=== PATIENT | male | born 1990 | race American Indian/Alaskan Native ===

== ENCOUNTER 2020-09-24 21:08 | Inpatient (IN) | payer MEDICAID, OTHER ==
[2020-09-24] MEDS ORDERED: Sodium Chloride 0.9% 10 ML Syringe FLUSH PRN (21:09)
[2020-09-24] MEDS ORDERED: Sodium Chloride 0.9% 2.5 ML Syringe FLUSH PRN (21:09)
[2020-09-24] MEDS ORDERED: Folic Acid 50 MG/10 ML MDV IV STA (21:10)
[2020-09-24] MEDS ORDERED: Thiamine 200 MG/2 ML MDV IVPUSH ONE (21:11)
[2020-09-24] MEDS ORDERED: Morphine 4 MG/ML Syringe IVPUSH ONE ×2 (21:24→22:51)
[2020-09-24] MEDS ORDERED: Ondansetron 4 MG/2 ML SDV IVPUSH ONE (21:24)
--- NOTE | 2020-09-24 21:29 | EDM.PDOC ---
ED HPI GENERAL MEDICAL PROBLEM - General Chief Complaint: Abdominal Pain Stated Complaint: ALCOHOLISM ISSUES Time Seen by Provider: 09/24/20 21:09 - History of Present Illness INITIAL COMMENTS - FREE TEXT/NARRATIVE: 29-year-old male with a history of heavy alcohol abuse but denies history of alcohol withdrawal history of pancreatitis that he says has been bothering him for the last 2 months who is presenting with alcohol intoxication and abdominal pain. The patient states that he has been admitted for his pancreas twice most recently a few days ago in [place]. He states that he was admitted for 5 days. He was initially given Dilaudid and then oxycodones but he did not like how they made him feel. He did do better with morphine. He states that they told him that they were going to discharge him and his brother was there so he went home with his brother. He is currently homeless and living in his brother's garage. He has been drinking with his brother every day since discharge. Today he developed worsening abdominal pain similar to prior episodes of pancreatitis. He called 911 and after that his brother kicked him out of his house because he did not want anyone to show up at his house. EMS found him on the side of the road. He was initially hypothermic. He denies other medical problems. Abdominal pain is associated with nausea and is moderate to severe. abdomen Pain Score (Numeric/FACES): 10 - Related Data Allergies Allergy/AdvReac Type Severity Reaction Status Date / Time No Known Allergies Allergy Verified 09/24/20 21:32 Home Meds: Home Meds . [No Known Home Meds] 09/24/20 [History] ED ROS GENERAL - Review of Systems Review Of Systems: See Below Free Text/Narrative/Comment: General: No fever. Skin: No rash. Neck: No neck stiffness. Respiratory: No shortness of breath. Cardiac: No chest pain. Gastrointestinal: No nausea, vomiting or abdominal pain. Urinary: No dysuria. Musculoskeletal: No myalgias/arthralgias. Neurologic: No headache. Per HPI ED EXAM, GENERAL - Physical Exam Exam: See Below Free Text/Narrative:: General Appearance: No acute distress, appears comfortable Skin: No rash HEENT: Normocephalic/atraumatic, sclera anicteric, mucous membranes dry Neck: Normal range of motion Chest and Lungs: Bilateral breath sounds, clear to auscultation Cardiovascular: Regular rate and rhythm, no murmur Abdomen: Diffuse tenderness without guarding or rebound dry Musculoskeletal: No edema or tenderness Neurologic: Awake, alert, no obvious deficits, moving all extremities, no slurred speech clinically sober Psychiatric: Appropriate, cooperative Course - Vital Signs Last Recorded V/S: Last Vital Signs Temp 95.6 F L 09/24/20 21:17 Pulse 67 09/24/20 21:17 Resp 20 09/24/20 21:17 BP 127/78 09/24/20 21:17 Pulse Ox 100 09/24/20 21:17 - Orders/Labs/Meds Orders: Active Orders 24 hr Category Date Time Status Accu Check [Blood Glucose Check, Bedside] [RC] ONETIME Care 09/24/20 21:12 Active COVID-19/FLU A+B [MOLEC] Stat Lab 09/24/20 22:54 Ordered Lactated Ringers [Ringers, Lactated] 1,000 ml Med 09/24/20 22:30 Active IV ASDIRECTED Sodium Chloride 0.9% [Saline Flush] Med 09/24/20 21:09 Active 10 ml FLUSH ASDIRECTED PRN Sodium Chloride 0.9% [Saline Flush] Med 09/24/20 21:09 Active 2.5 ml FLUSH ASDIRECTED PRN Saline Lock Insert [OM.PC] Stat Oth 09/24/20 21:10 Ordered Medication Orders Lactated Ringer's (Ringers, Lactated) 1,000 mls @ 125 mls/hr IV ASDIRECTED LISA Sodium Chloride (Sodium Chloride 0.9% 10 Ml Syringe) 10 ml FLUSH ASDIRECTED PRN PRN Reason: Keep Vein Open Last Admin: 09/24/20 21:29 Dose: 10 ml Documented by: SID Sodium Chloride (Sodium Chloride 0.9% 2.5 Ml Syringe) 2.5 ml FLUSH ASDIRECTED PRN PRN Reason: Keep Vein Open Last Admin: 09/24/20 21:29 Dose: 2.5 ml Documented by: SID Labs: Laboratory Tests 09/24/20 09/24/20 09/24/20 Range/Units 21:35 21:35 21:35 WBC 7.72 (4.0-11.0) K/uL RBC 3.96 L (4.50-5.90) M/uL Hgb 14.0 (13.0-17.0) g/dL Hct 42.3 (38.0-50.0) % MCV 106.8 H (80.0-98.0) fL MCH 35.4 H (27.0-32.0) pg MCHC 33.1 (31.0-37.0) g/dL RDW Std Deviation 58.1 (28.0-62.0) fl RDW Coeff of Hawa 15 (11.0-15.0) % Plt Count 298 (150-400) K/uL MPV 10.00 (7.40-12.00) fL Neut % (Auto) 48.6 (48.0-80.0) % Lymph % (Auto) 32.4 (16.0-40.0) % [place] % (Auto) 9.7 (0.0-15.0) % Eos % (Auto) 6.3 (0.0-7.0) % Baso % (Auto) 3.0 H (0.0-1.5) % Neut # (Auto) 3.8 (1.4-5.7) K/uL Lymph # (Auto) 2.5 H (0.6-2.4) K/uL [place] # (Auto) 0.8 (0.0-0.8) K/uL Eos # (Auto) 0.5 (0.0-0.7) K/uL Baso # (Auto) 0.2 H (0.0-0.1) K/uL Nucleated RBC % 0.0 /100WBC Nucleated RBCs # 0 K/uL Sodium 146 (136-148) mmol/L Potassium 3.8 (3.5-5.1) mmol/L Chloride 107 (98-107) mmol/L Carbon Dioxide 27.8 (21.0-32.0) mmol/L BUN 7 (7.0-18.0) mg/dL Creatinine 0.8 (0.8-1.3) mg/dL Est Cr Clr Drug Dosing 135.49 mL/min Estimated GFR (MDRD) > 60.0 ml/min Glucose 103 (74-106) mg/dL POC Glucose 92 (70-99) mg/dL Calcium 8.7 (8.5-10.1) mg/dL Magnesium 2.1 (1.8-2.4) mg/dL Total Bilirubin 0.8 (0.2-1.0) mg/dL AST 94 H (15-37) IU/L ALT 258 H (14-63) IU/L Alkaline Phosphatase 201 H (46-116) U/L Total Protein 8.2 (6.4-8.2) g/dL Albumin 3.6 (3.4-5.0) g/dL Globulin 4.6 H (2.6-4.0) g/dL Albumin/Globulin Ratio 0.8 L (0.9-1.6) Lipase 1781 H (73-393) U/L Ethyl Alcohol 265 mg/dL Meds: Medications Generic Name Dose Route Start Last Admin Trade Name Taniya PRN Reason Stop Dose Admin Lactated Ringer's 1,000 mls @ 125 mls/hr 09/24/20 22:30 Ringers, Lactated IV ASDIRECTED LISA Sodium Chloride 10 ml 09/24/20 21:09 09/24/20 21:29 Sodium Chloride 0.9% 10 Ml Syringe FLUSH 10 ml ASDIRECTED PRN Administration Keep Vein Open Sodium Chloride 2.5 ml 09/24/20 21:09 09/24/20 21:29 Sodium Chloride 0.9% 2.5 Ml Syringe FLUSH 2.5 ml ASDIRECTED PRN Administration Keep Vein Open Discontinued Medications Generic Name Dose Route Start Last Admin Trade Name Taniya PRN Reason Stop Dose Admin Folic Acid 1 mg 09/24/20 21:10 09/24/20 21:28 Folic Acid 50 Mg/10 Ml Mdv IV 09/24/20 21:11 1 mg NOW STA Administration Morphine Sulfate 4 mg 09/24/20 21:24 09/24/20 21:28 Morphine 4 Mg/Ml Syringe IVPUSH 09/24/20 21:25 4 mg ONETIME ONE Administration Morphine Sulfate 4 mg 09/24/20 22:51 Morphine 4 Mg/Ml Syringe IVPUSH 09/24/20 22:52 ONETIME ONE Ondansetron HCl 4 mg 09/24/20 21:24 09/24/20 21:29 Ondansetron 4 Mg/2 Ml Sdv IVPUSH 09/24/20 21:25 4 mg ONETIME ONE Administration Thiamine HCl 100 mg 09/24/20 21:11 09/24/20 21:28 Thiamine 200 Mg/2 Ml Mdv IVPUSH 09/24/20 21:12 100 mg ONETIME ONE Administration Departure - Departure Time of Disposition: 22:58 Disposition: Admitted As Inpatient 66 Condition: Good Clinical Impression: Acute pancreatitis - Discharge Information *PRESCRIPTION DRUG MONITORING PROGRAM REVIEWED*: Not Applicable *COPY OF PRESCRIPTION DRUG MONITORING REPORT IN PATIENT KYLEE: Not Applicable Forms: ED Department Discharge Sepsis Event Note (ED) - Focused Exam Vital Signs: Vital Signs Temp Pulse Resp BP Pulse Ox 09/24/20 21:17 95.6 F L 67 20 127/78 100 - My Orders Last 24 Hours: My Active Orders 09/24/20 21:09 Sodium Chloride 0.9% [Saline Flush] 10 ml FLUSH ASDIRECTED PRN Sodium Chloride 0.9% [Saline Flush] 2.5 ml FLUSH ASDIRECTED PRN 09/24/20 21:10 Saline Lock Insert [OM.PC] Stat 09/24/20 21:12 Accu Check [Blood Glucose Check, Bedside] [RC] ONETIME 09/24/20 22:30 Lactated Ringers [Ringers, Lactated] 1,000 ml IV ASDIRECTED 09/24/20 22:54 COVID-19/FLU A+B [MOLEC] Stat - Assessment/Plan Last 24 Hours: My Active Orders 09/24/20 21:09 Sodium Chloride 0.9% [Saline Flush] 10 ml FLUSH ASDIRECTED PRN Sodium Chloride 0.9% [Saline Flush] 2.5 ml FLUSH ASDIRECTED PRN 09/24/20 21:10 Saline Lock Insert [OM.PC] Stat 09/24/20 21:12 Accu Check [Blood Glucose Check, Bedside] [RC] ONETIME 09/24/20 22:30 Lactated Ringers [Ringers, Lactated] 1,000 ml IV ASDIRECTED 09/24/20 22:54 COVID-19/FLU A+B [MOLEC] Stat Assessment:: 29-year-old male who I suspect has a significant amount of alcohol in his system but he was clinically sober presenting with signs and symptoms consistent with pancreatitis. Lab work pending thiamine and folate ordered warm blankets provided. Accu-Chek pending CBC CMP magnesium ordered. Morphine Zofran for symptoms and will continue to monitor closely. Patient has a strong desire to go back to [place]. 2257: Patient's labs are consistent with acute alcohol induced pancreatitis patient given additional pain medication patient agrees to admission for his acute pancreatitis. Patient discussed with Dr. Roth and will admit for acute pancreatitis. Patient ordered for 1 L of IV fluid to be followed by lactated Ringer's at 125 mL an hour.
[2020-09-24 22:01] LABS: BLOOD UREA NITROGEN,BUN 7 mg/dL (7.0-18.0); CARBON DIOXIDE,CO2 27.8 mmol/L (21.0-32.0); CHLORIDE,CL 107 mmol/L (98-107); GLUCOSE RANDOM 103 mg/dL (74-106); LIPASE 1781 U/L (73-393); POTASSIUM,K 3.8 mmol/L (3.5-5.1); SODIUM,NA 146 mmol/L (136-148)
[2020-09-24] MEDS ORDERED: LORazepam 2 MG/ML SDV IVPUSH PRN (22:56)
[2020-09-24] MEDS ORDERED: Lactated Ringers 1,000 ML IV ONE ×2 (22:56)
[2020-09-24] MEDS ORDERED: Nicotine 14 MG/24 Hr Patch TRDERM ONE (23:40)
[2020-09-25 00:03] LABS: CORONAVIRUS COVID-19 NAA NEGATIVE (NEGATIVE); INFLUENZA A NAA NEGATIVE (NEGATIVE); INFLUENZA B NAA NEGATIVE (NEGATIVE)
[2020-09-25] MEDS ORDERED: Lactated Ringers 1,000 ML IV ONE (01:47)
[2020-09-25] MEDS: Morphine 2 MG/ML SYRINGE IVPUSH PRN ×4 (02:37→12:00)
[2020-09-25] MEDS: Lactated Ringers 1,000 ML IV SCH ×2 (03:30→12:00)
[2020-09-25 06:13] LABS: BLOOD UREA NITROGEN,BUN 5 mg/dL (7.0-18.0); CARBON DIOXIDE,CO2 28.9 mmol/L (21.0-32.0); CHLORIDE,CL 107 mmol/L (98-107); GLUCOSE RANDOM 84 mg/dL (74-106); POTASSIUM,K 3.8 mmol/L (3.5-5.1); SODIUM,NA 144 mmol/L (136-148)
--- NOTE | 2020-09-25 08:14 | PCM.HP.2 ---
H&P History of Present Illness - General Date of Service: 09/25/20 Admit Problem/Dx: Admission Diagnosis/Problem Admission Diagnosis/Problem Pancreatitis Source of Information: Patient History Limitations: Reports: No Limitations - History of Present Illness Initial Comments - Free Text/Narative: This 29-year-old male with past medical history of alcohol abuse and recent yenny uts of pancreatitis comes into the ER with complaints of abdominal pain. He was recently discharged from [place] 2 to 3 weeks ago where he was admitted for 5 days for acute pancreatitis. He reports he was treated with Dilaudid and then oxycodone on discharge but he did not like how they made him feel. He reports that he has been doing well until 2 nights ago when he started having abdominal pain. He is quite vague on the amount of alcohol he has been drinking he reports that he really has not been drinking much but does usually drink close to 2 pints of hard alcohol daily. He reports he was drinking when the pain started on Wednesday. Alcohol level in the ER yesterday was in the 200s. He d enies any chest pain or shortness of breath. Denies any black or bloody bowel movements, no diarrhea or constipation. No dysuria. Denies any neurological complaints. Denies any headache or neck pain. Denies any fevers chills or sinus congestion. He drinks a stated above 2 to 3 pints daily. He also uses tobacco, cigarettes half a pack a day. Denies any recreational drug use. In the ER transaminitis noted AST 94 ALT 258 alk phos 201 bilirubin 0.8. Lipase elevated at 1781. Alcohol 265 influenza and Covid swab negative. Vital signs stable slightly hypothermic upon arrival as he was walking outside reports that his brother has kicked him out of the house and he has been trying to get over to [place] in the past few days with his family. Patient was treated with IV fluids along with pain medication in the ER. He will be admitted inpatient for acute pancreatitis secondary to alcohol abuse. Patient is requesting transfer [place] as he would be closer to family that he would be in [place] for when he is discharged. abdomen Pain Score (Numeric/FACES): 7 - Related Data Allergies/Adverse Reactions: Allergies Allergy/AdvReac Type Severity Reaction Status Date / Time No Known Allergies Allergy Verified 09/25/20 02:36 Home Medications: Home Meds . [No Known Home Meds] 09/24/20 [History] Past Medical History Gastrointestinal History: Reports: Pancreatitis - Past Surgical History GI Surgical History: Reports: None Social & Family History - Family History Family Medical History: No Pertinent Family History - Tobacco Use Tobacco Use Status *Q: Current Every Day Tobacco User Years of Tobacco use: 10 Packs/Tins Daily: 1 Used Tobacco, but Quit: No Second Hand Smoke Exposure: Yes - Caffeine Use Caffeine Use: Reports: Soda - Alcohol Use Days Per Week of Alcohol Use: 7 Number of Drinks Per Day: 5 Total Drinks Per Week: 35 Date of Last Drink: 09/24/20 - Recreational Drug Use Recreational Drug Use: No Recreational Drug Type: Reports: Marijuana/Hashish Recreational Drug Use Frequency: Socially H&P Review of Systems - Review of Systems: Review Of Systems: See Below General: Reports: No Symptoms. Denies: Fever, Chills, Malaise HEENT: Reports: No Symptoms. Denies: Headaches, Sinus Congestion, Sore Throat Pulmonary: Reports: No Symptoms. Denies: Shortness of Breath Cardiovascular: Reports: No Symptoms. Denies: Chest Pain Gastrointestinal: Reports: Abdominal Pain. Denies: Black Stool, Bloody Stool, Diarrhea, Decreased Appetite, Nausea, Vomiting Genitourinary: Reports: No Symptoms. Denies: Dysuria, Frequency, Burning Skin: Reports: No Symptoms Psychiatric: Reports: No Symptoms Neurological: Reports: Tremors Hematologic/Lymphatic: Reports: No Symptoms Immunologic: Reports: No Symptoms Exam - Exam Exam: See Below - Vital Signs Vital Signs: Last Vital Signs Temp 97.7 F 09/25/20 07:57 Pulse 67 09/25/20 07:57 Resp 20 09/25/20 07:57 BP 116/75 09/25/20 07:57 Pulse Ox 93 L 09/25/20 07:57 Weight: 66.996 kg - Exam General: Alert, Oriented, Cooperative HEENT: Conjunctiva Clear, Mucosa Moist & [place], Posterior Pharynx Clear Neck: Supple Lungs: Clear to Auscultation, Normal Respiratory Effort Cardiovascular: Regular Rate, Regular Rhythm GI/Abdominal Exam: Normal Bowel Sounds, Soft, Tender (Epigastric) Back Exam: Normal Inspection, Full Range of Motion Extremities: Normal Inspection, Normal Range of Motion, Non-Tender, No Pedal Edema Skin: Warm, Dry Neuro Extensive - Mental Status: Alert, Oriented x3 Psychiatric: Alert, Anxious, Withdrawal Symptoms - Patient Data Lab Results Last 24 hrs: Laboratory Results - last 24 hr 09/24/20 09/24/20 09/24/20 Range/Units 21:35 21:35 21:35 WBC 7.72 (4.0-11.0) K/uL RBC 3.96 L (4.50-5.90) M/uL Hgb 14.0 (13.0-17.0) g/dL Hct 42.3 (38.0-50.0) % MCV 106.8 H (80.0-98.0) fL MCH 35.4 H (27.0-32.0) pg MCHC 33.1 (31.0-37.0) g/dL RDW Std Deviation 58.1 (28.0-62.0) fl RDW Coeff of Hawa 15 (11.0-15.0) % Plt Count 298 (150-400) K/uL MPV 10.00 (7.40-12.00) fL Neut % (Auto) 48.6 (48.0-80.0) % Lymph % (Auto) 32.4 (16.0-40.0) % Hardy % (Auto) 9.7 (0.0-15.0) % Eos % (Auto) 6.3 (0.0-7.0) % Baso % (Auto) 3.0 H (0.0-1.5) % Neut # (Auto) 3.8 (1.4-5.7) K/uL Lymph # (Auto) 2.5 H (0.6-2.4) K/uL Hardy # (Auto) 0.8 (0.0-0.8) K/uL Eos # (Auto) 0.5 (0.0-0.7) K/uL Baso # (Auto) 0.2 H (0.0-0.1) K/uL Nucleated RBC % 0.0 /100WBC Nucleated RBCs # 0 K/uL Sodium 146 (136-148) mmol/L Potassium 3.8 (3.5-5.1) mmol/L Chloride 107 (98-107) mmol/L Carbon Dioxide 27.8 (21.0-32.0) mmol/L BUN 7 (7.0-18.0) mg/dL Creatinine 0.8 (0.8-1.3) mg/dL Est Cr Clr Drug Dosing 135.49 mL/min Estimated GFR (MDRD) > 60.0 ml/min Glucose 103 (74-106) mg/dL POC Glucose 92 (70-99) mg/dL Calcium 8.7 (8.5-10.1) mg/dL Phosphorus (2.6-4.7) mg/dL Magnesium 2.1 (1.8-2.4) mg/dL Total Bilirubin 0.8 (0.2-1.0) mg/dL AST 94 H (15-37) IU/L ALT 258 H (14-63) IU/L Alkaline Phosphatase 201 H (46-116) U/L Total Protein 8.2 (6.4-8.2) g/dL Albumin 3.6 (3.4-5.0) g/dL Globulin 4.6 H (2.6-4.0) g/dL Albumin/Globulin Ratio 0.8 L (0.9-1.6) Lipase 1781 H (73-393) U/L Ethyl Alcohol 265 mg/dL Influenza Type A RNA (NEGATIVE) Influenza Type B RNA (NEGATIVE) SARS-CoV-2 RNA (SHANKAR) (NEGATIVE) 09/24/20 09/25/20 09/25/20 Range/Units 23:17 05:16 05:16 WBC 5.43 (4.0-11.0) K/uL RBC 3.66 L (4.50-5.90) M/uL Hgb 12.9 L (13.0-17.0) g/dL Hct 39.3 (38.0-50.0) % MCV 107.4 H (80.0-98.0) fL MCH 35.2 H (27.0-32.0) pg MCHC 32.8 (31.0-37.0) g/dL RDW Std Deviation 58.7 (28.0-62.0) fl RDW Coeff of Hawa 15 (11.0-15.0) % Plt Count 293 (150-400) K/uL MPV 9.90 (7.40-12.00) fL Neut % (Auto) 47.6 L (48.0-80.0) % Lymph % (Auto) 32.8 (16.0-40.0) % Hardy % (Auto) 12.0 (0.0-15.0) % Eos % (Auto) 5.2 (0.0-7.0) % Baso % (Auto) 2.4 H (0.0-1.5) % Neut # (Auto) 2.6 (1.4-5.7) K/uL Lymph # (Auto) 1.8 (0.6-2.4) K/uL Hardy # (Auto) 0.7 (0.0-0.8) K/uL Eos # (Auto) 0.3 (0.0-0.7) K/uL Baso # (Auto) 0.1 (0.0-0.1) K/uL Nucleated RBC % 0.0 /100WBC Nucleated RBCs # 0 K/uL Sodium 144 (136-148) mmol/L Potassium 3.8 (3.5-5.1) mmol/L Chloride 107 (98-107) mmol/L Carbon Dioxide 28.9 (21.0-32.0) mmol/L BUN 5 L (7.0-18.0) mg/dL Creatinine 0.7 L (0.8-1.3) mg/dL Est Cr Clr Drug Dosing 147.55 mL/min Estimated GFR (MDRD) > 60.0 ml/min Glucose 84 (74-106) mg/dL POC Glucose (70-99) mg/dL Calcium 8.3 L (8.5-10.1) mg/dL Phosphorus 4.7 (2.6-4.7) mg/dL Magnesium 1.6 L (1.8-2.4) mg/dL Total Bilirubin 0.7 (0.2-1.0) mg/dL AST 84 H (15-37) IU/L ALT 209 H (14-63) IU/L Alkaline Phosphatase 161 H (46-116) U/L Total Protein 7.0 (6.4-8.2) g/dL Albumin 3.0 L (3.4-5.0) g/dL Globulin 4.0 (2.6-4.0) g/dL Albumin/Globulin Ratio 0.8 L (0.9-1.6) Lipase (73-393) U/L Ethyl Alcohol mg/dL Influenza Type A RNA NEGATIVE (NEGATIVE) Influenza Type B RNA NEGATIVE (NEGATIVE) SARS-CoV-2 RNA (SHANKAR) NEGATIVE (NEGATIVE) Result Diagrams: 09/25/20 05:16 09/25/20 05:16 Sepsis Event Note - Evaluation Sepsis Screening Result: No Definite Risk - Focused Exam Vital Signs: Vital Signs Temp Temp Pulse Resp BP Pulse Ox 09/25/20 07:57 97.7 F 67 20 116/75 93 L 09/25/20 05:44 97.3 F 74 17 124/62 96 09/25/20 02:07 97.3 F 76 18 136/68 96 09/25/20 01:13 60 18 101/56 L 96 09/25/20 00:54 74 18 101/48 L 95 09/24/20 23:14 81 18 117/55 L 97 09/24/20 23:12 86 16 117/55 L 97 09/24/20 21:17 95.6 F L 67 20 127/78 100 - Problem List (1) Acute alcoholic pancreatitis SNOMED Code(s): 156444997 ICD Code: K85.20 - ALCOHOL INDUCED ACUTE PANCREATITIS WITHOUT NECROSIS OR INFCT Status: Acute Current Visit: Yes (2) Alcohol abuse SNOMED Code(s): 78661574 ICD Code: F10.10 - ALCOHOL ABUSE, UNCOMPLICATED Status: Chronic Current Visit: Yes (3) Tobacco abuse SNOMED Code(s): 456066240 ICD Code: Z72.0 - TOBACCO USE Status: Chronic Current Visit: Yes Problem List Initiated/Reviewed/Updated: Yes Orders Last 24hrs: Active Orders 24 hr Category Date Time Status Patient Status [ADT] Routine ADT 09/24/20 22:57 Active Telemetry Monitoring [Cardiac Monitoring] [RC] Q8H Care 09/24/20 23:53 Active NPO [Nothing Per Oral Diet] [DIET] Diet 09/25/20 Breakfast Active Folic Acid Med 09/25/20 09:00 Active 1 mg SUBCUT DAILY LORazepam [Ativan] Med 09/24/20 22:56 Active See Protocol IVPUSH Q4H PRN Lactated Ringers [Ringers, Lactated] 1,000 ml Med 09/24/20 22:30 Active IV ASDIRECTED Morphine Med 09/24/20 22:58 Active 2 mg IVPUSH Q3H PRN Sodium Chloride 0.9% [Saline Flush] Med 09/24/20 21:09 Active 10 ml FLUSH ASDIRECTED PRN Sodium Chloride 0.9% [Saline Flush] Med 09/24/20 21:09 Active 2.5 ml FLUSH ASDIRECTED PRN Thiamine [Vitamin B-1] 100 mg Med 09/25/20 09:00 Active Sodium Chloride 0.9% [Normal Saline] 100 ml IV DAILY Saline Lock Insert [OM.PC] Stat Oth 09/24/20 21:10 Ordered Medication Orders Folic Acid (Folic Acid 50 Mg/10 Ml Mdv) 1 mg SUBCUT DAILY LISA Lactated Ringer's (Ringers, Lactated) 1,000 mls @ 125 mls/hr IV ASDIRECTED LISA Last Admin: 09/25/20 03:30 Dose: 125 mls/hr Documented by: LEXIE Thiamine HCl 100 mg/ Sodium (Chloride) 101 mls @ 202 mls/hr IV DAILY LISA Lorazepam (Lorazepam 2 Mg/Ml Sdv) 0 mg IVPUSH Q4H PRN; Protocol PRN Reason: CIWAA Morphine Sulfate (Morphine 2 Mg/Ml Syringe) 2 mg IVPUSH Q3H PRN PRN Reason: Pain Last Admin: 09/25/20 06:06 Dose: 2 mg Documented by: Admin: 09/25/20 02:37 Dose: 2 mg Documented by: LEXIE Sodium Chloride (Sodium Chloride 0.9% 10 Ml Syringe) 10 ml FLUSH ASDIRECTED PRN PRN Reason: Keep Vein Open Last Admin: 09/24/20 21:29 Dose: 10 ml Documented by: SID Sodium Chloride (Sodium Chloride 0.9% 2.5 Ml Syringe) 2.5 ml FLUSH ASDIRECTED PRN PRN Reason: Keep Vein Open Last Admin: 09/24/20 21:29 Dose: 2.5 ml Documented by: SID Assessment/Plan Comment:: This 29-year-old male admitted with acute alcoholic pancreatitis history of alcohol abuse 1. Acute alcoholic pancreatitis -Continue IV fluid resuscitation -Lipase is improving today -Bowel rest -Morphine as needed pain -Zofran as needed nausea -Transaminitis likely secondary to alcohol abuse we will continue to monitor daily 2. Alcohol abuse/withdrawal -Continue thiamine and folic acid supplementation -CIWAA protocol as needed Ativan -Seizure precautions VTE prophylaxis: SCDs and ambulation GI prophylaxis: Protonix CODE STATUS: Full code Dispo: We will attempt transfer to [place] per patient request though I did discuss cristopher with patient that [place] may refuse this as he could be medically treated appropriately within our facility. Patient understood this but would like to ultimately go to [place]. Discharge plan: Patient requested transfer to [place] as he would be closer to family. We did discuss at extensive length with patient that this is a patient request and that medical necessity is not necessarily therefore acute transfer. Patient understands but continues to request transfer or he is threatening to leave AGAINST MEDICAL ADVICE. I spoke with Dr. Vargas who would accept patient for transfer if patient ultimately feels he wants to come though he feels this is an inappropriate use of resources patient again was counseled that this is a patient request and that he may be liable and responsible for all hospital bills and ambulance bills. Patient verbalizes understanding and continues to want to go [place]. Patient will be transferred to via ambulance S at this time Dr. Vargas excepting. Continue IV fluids during transfer will give patient narcotic pain medication prior to discharge and he may continue pain meds as ordered once he reaches [place]. - Mortality Measure Prognosis:: Good
[2020-09-25] MEDS ORDERED: Magnesium Sulfate/Water 2 GM/50 ML BAG IV ONE (08:16)
[2020-09-25] MEDS ORDERED: Ondansetron 4 MG/2 ML SDV IVPUSH PRN (08:17)
[2020-09-25] MEDS ORDERED: Acetaminophen 325 MG Tab PO PRN (08:17)
[2020-09-25] MEDS ORDERED: Sodium Chloride 0.9% 2.5 ML Syringe FLUSH PRN (08:17)
[2020-09-25] MEDS ORDERED: Pantoprazole 40 MG Vial IV SCH (08:30)
[2020-09-25] MEDS ORDERED: Pantoprazole 40 MG in Sodium Chloride 0.9% 10 ML IV SCH (09:00)
[2020-09-25] MEDS ORDERED: Folic Acid 50 MG/10 ML MDV SUBCUT SCH (09:00)
[2020-09-25] MEDS ORDERED: Thiamine 100 MG in Sodium Chloride 0.9% 100 ML IV SCH (09:00)
== END 2020-09-25 13:30 | DRG 440 ==
LOC: MW.ED 21:08 → MW.MS 22:57
PROVIDERS: ADMIT Internal Medicine; ATTEND Internal Medicine
DX: K85.20 Alcohol induced acute pancreatitis without necrosis or infection (principal); F17.210 Nicotine dependence, cigarettes, uncomplicated; F10.10 Alcohol abuse, uncomplicated; Z20.822 Contact with and (suspected) exposure to COVID-19
CPT/HCPCS: 0240U; 36415; 80053; 80307; 82947; 83690; 83735; 84100; 85025; 99284; A9270-GY; C9113; J2270; J2405; J3411; J3475; J7120

== ENCOUNTER 2024-01-13 17:58 | Emergency (ER) | payer MEDICAID ==
[2024-01-13 18:31] LABS: BASOPHILS ABSOLUTE AUTO 0.07 K/uL (0.00-0.20); EOSINOPHILS ABSOLUTE AUTO 0.09 K/uL (0.00-0.45); EOSINOPHILS PERCENT AUTO 1.2 % (0.0-6.0); HEMOGLOBIN 16.3 g/dL (14.0-18.0); IMMATURE GRAN ABSOLUTE AUTO 0.06 K/uL (0.00-0.05); IMMATURE GRAN PERCENT AUTO 0.8 % (0.0-0.4); LYMPHOCYTES ABSOLUTE AUTO 1.45 K/uL (1.00-4.80); LYMPHOCYTES PERCENT AUTO 19.8 % (24.0-44.0); MEAN CORPUSCULAR HEMOGLOBIN 34.5 pg (28.0-32.0); MEAN CORPUSCULAR HGB CONC 34.7 g/dL (32.0-36.0); MEAN CORPUSCULAR VOLUME 99.4 fL (83.0-99.0); MEAN PLATELET VOLUME 9.6 fL (9.4-12.4); MONOCYTES ABSOLUTE AUTO 0.75 K/uL (0.00-0.80); MONOCYTES PERCENT AUTO 10.2 % (0.0-8.0); NEUTROPHILS ABSOLUTE AUTO 4.91 K/uL (1.80-7.70); PLATELET COUNT,PLT 121 K/uL (150-400); RED BLOOD CELL COUNT 4.73 M/uL (4.52-5.90); WHITE BLOOD CELL COUNT,WBC 7.33 K/uL (3.9-11.3)
[2024-01-13] MEDS: Ondansetron 4 MG/2 ML SDV IVPUSH STA (18:40)
[2024-01-13] MEDS: Nicotine 21 MG/24 Hr Patch TRDERM STA (18:40)
[2024-01-13] MEDS: Sodium Chloride 0.9% 1,000 ML IV STA ×3 (18:40→20:50)
[2024-01-13] MEDS: Morphine 4 MG/ML Syringe IVPUSH STA (18:41)
[2024-01-13 18:51] LABS: INR 1.02 (0.86-1.11)
[2024-01-13 19:08] LABS: ALBUMIN 4.8 g/dL (3.4-5.0); BILIRUBIN TOTAL 0.8 mg/dL (0.2-1.0); CALCIUM 9.9 mg/dL (8.5-10.1); CARBON DIOXIDE,CO2 24.4 mmol/L (21.0-32.0); CREATININE 1.9 mg/dL (0.8-1.3); EST CRCL DRUG DOSING (CG) 51.44 mL/min; POTASSIUM,K 3.7 mmol/L (3.5-5.1); PROTEIN TOTAL,TP 9.7 g/dL (6.4-8.2)
[2024-01-13 19:14] LABS: MAGNESIUM 2.3 mg/dL (1.8-2.4)
[2024-01-13] MEDS: Iopamidol 755 MG/ML 500 ML Multipack Bottle IVPUSH STA (19:36)
[2024-01-13] MEDS: HYDROmorphone 0.5 MG/0.5 ML Syringe IVPUSH STA (20:22)
== END 2024-01-13 21:05 | disposition home or self-care (01) ==
LOC: MW.ED 17:58
DX: R10.84 Generalized abdominal pain (principal); F10.10 Alcohol abuse, uncomplicated; R74.01 Elevation of levels of liver transaminase levels; R74.8 Abnormal levels of other serum enzymes; Z75.8 Other problems related to medical facilities and other health care
CPT/HCPCS: 36415; 74177; 80053; 83690; 83735; 84484; 85025; 85610; 93005; 96361; 96374; 96375; 99285; A9270; J1170; J2270; J2405; J7030; Q9967; 93010; 99284

== ENCOUNTER 2024-01-13 21:30 | Inpatient (IN) | payer MEDICAID ==
[2024-01-14] MEDS: droPERidol 5 MG/2 ML SDV IVPUSH ONE (00:37)
[2024-01-14] MEDS: LORazepam 2 MG/ML SDV IVPUSH ONE (00:37)
[2024-01-14] MEDS: Sodium Chloride 0.9% 10 ML Syringe FLUSH PRN (00:38)
[2024-01-14] MEDS: Sodium Chloride 0.9% 2.5 ML Syringe FLUSH PRN (00:38)
[2024-01-14] MEDS: Ondansetron 4 MG/2 ML SDV IVPUSH ONE (03:06)
[2024-01-14] MEDS: Sodium Chloride 0.9% 1,000 ML IV STA (03:21)
[2024-01-14] MEDS: Diazepam 5 MG Tab PO ONE (03:21)
[2024-01-14] MEDS ORDERED: LORazepam 2 MG/ML SDV IVPUSH PRN (05:08)
[2024-01-14] MEDS: Thiamine 200 MG/2 ML MDV IVPUSH SCH (06:08)
[2024-01-14] MEDS: Sodium Chloride 0.9% 1,000 ML IV SCH (06:20)
[2024-01-14 08:51] LABS: BASOPHILS ABSOLUTE AUTO 0.04 K/uL (0.00-0.20); BASOPHILS PERCENT AUTO 0.8 % (0.0-1.0); EOSINOPHILS ABSOLUTE AUTO 0.14 K/uL (0.00-0.45); EOSINOPHILS PERCENT AUTO 2.9 % (0.0-6.0); HEMATOCRIT 35.8 % (42.0-52.0); HEMOGLOBIN 12.5 g/dL (14.0-18.0); IMMATURE GRAN ABSOLUTE AUTO 0.02 K/uL (0.00-0.05); IMMATURE GRAN PERCENT AUTO 0.4 % (0.0-0.4); LYMPHOCYTES ABSOLUTE AUTO 1.38 K/uL (1.00-4.80); LYMPHOCYTES PERCENT AUTO 28.6 % (24.0-44.0); MEAN CORPUSCULAR HGB CONC 34.9 g/dL (32.0-36.0); MEAN CORPUSCULAR VOLUME 100.3 fL (83.0-99.0); MEAN PLATELET VOLUME 9.6 fL (9.4-12.4); MONOCYTES ABSOLUTE AUTO 0.45 K/uL (0.00-0.80); MONOCYTES PERCENT AUTO 9.3 % (0.0-8.0); RED BLOOD CELL COUNT 3.57 M/uL (4.52-5.90); WHITE BLOOD CELL COUNT,WBC 4.83 K/uL (3.9-11.3)
[2024-01-14] MEDS ORDERED: Ondansetron 4 MG/2 ML SDV IVPUSH PRN (08:55)
[2024-01-14 09:16] LABS: ALBUMIN 3.5 g/dL (3.4-5.0); CALCIUM 8.4 mg/dL (8.5-10.1); CARBON DIOXIDE,CO2 26.7 mmol/L (21.0-32.0); CREATININE 0.8 mg/dL (0.8-1.3); EST CRCL DRUG DOSING (CG) 122.79 mL/min; MAGNESIUM 1.7 mg/dL (1.8-2.4); PHOSPHORUS 3.5 mg/dL (2.6-4.7); POTASSIUM,K 3.6 mmol/L (3.5-5.1)
[2024-01-14 09:31] LABS: PLATELET COUNT,PLT 95 K/uL (150-400)
[2024-01-14] MEDS: Pantoprazole 40 MG Tab.CR PO SCH (14:23)
[2024-01-14] MEDS ORDERED: Naloxone 0.4 MG/ML SDV IVPUSH PRN (15:59)
[2024-01-14] MEDS: Morphine 2 MG/ML SYRINGE IVPUSH PRN (17:28)
[2024-01-14] MEDS: Folic Acid 1 MG/0.2 ML UD Syringe IM SCH (20:21)
[2024-01-14] MEDS: Folic Acid 1 MG/0.2 ML UD Syringe IV SCH (20:30)
[2024-01-15 06:31] LABS: BASOPHILS ABSOLUTE AUTO 0.05 K/uL (0.00-0.20); BASOPHILS PERCENT AUTO 1.2 % (0.0-1.0); EOSINOPHILS ABSOLUTE AUTO 0.17 K/uL (0.00-0.45); EOSINOPHILS PERCENT AUTO 4.1 % (0.0-6.0); HEMATOCRIT 36.8 % (42.0-52.0); HEMOGLOBIN 12.6 g/dL (14.0-18.0); IMMATURE GRAN ABSOLUTE AUTO 0.01 K/uL (0.00-0.05); IMMATURE GRAN PERCENT AUTO 0.2 % (0.0-0.4); LYMPHOCYTES ABSOLUTE AUTO 1.23 K/uL (1.00-4.80); LYMPHOCYTES PERCENT AUTO 29.6 % (24.0-44.0); MEAN CORPUSCULAR HGB CONC 34.2 g/dL (32.0-36.0); MEAN CORPUSCULAR VOLUME 102.2 fL (83.0-99.0); MEAN PLATELET VOLUME 10.7 fL (9.4-12.4); MONOCYTES ABSOLUTE AUTO 0.45 K/uL (0.00-0.80); MONOCYTES PERCENT AUTO 10.8 % (0.0-8.0); NEUTROPHILS ABSOLUTE AUTO 2.24 K/uL (1.80-7.70); NEUTROPHILS PERCENT AUTO 54.1 % (41.0-71.0); PLATELET COUNT,PLT 92 K/uL (150-400); WHITE BLOOD CELL COUNT,WBC 4.15 K/uL (3.9-11.3)
[2024-01-15 06:59] LABS: ALBUMIN 3.4 g/dL (3.4-5.0); BILIRUBIN TOTAL 1.1 mg/dL (0.2-1.0); CALCIUM 8.8 mg/dL (8.5-10.1); CARBON DIOXIDE,CO2 26.8 mmol/L (21.0-32.0); CREATININE 0.7 mg/dL (0.8-1.3); EST CRCL DRUG DOSING (CG) 140.33 mL/min; POTASSIUM,K 3.8 mmol/L (3.5-5.1); PROTEIN TOTAL,TP 6.9 g/dL (6.4-8.2)
== END 2024-01-15 11:15 | disposition home or self-care (01) | DRG 896 ==
LOC: MW.ED 21:30 → MW.MS 01-14 03:07 → OBSVTOIN 01-14 10:38 → MW.MS 01-14 19:33
PROVIDERS: ADMIT Internal Medicine; ATTEND Internal Medicine
DX: F10.930 Alcohol use, unspecified with withdrawal, uncomplicated (principal); K85.20 Alcohol induced acute pancreatitis without necrosis or infection; R44.1 Visual hallucinations
CPT/HCPCS: 36415; 80053; 83735; 84100; 85025; 96361; 96374; 96375; 99284; 99284-25; A9270-GY; G0378; J1790; J2060; J2270; J2405; J3411; J3490; J7030